=== PATIENT | male | born 1975 | race Caucasian/White ===

== ENCOUNTER 2020-02-07 12:57 | Emergency (ER) | payer MEDICAID ==
[~2020-02-07] VITALS: Ht 167.6 cm; Wt 83.9 kg
[2020-02-07 13:10] VITALS: BP 138/94
--- NOTE | 2020-02-07 13:23 | NUR ---
44 y/o m c/c upper back pain x 3 days. per pt denies trauma, work related injury, and taking otc rx. pt 05/19 pain, non radiating, sharp sensation with movement. per pt when bending and breathing deep triggers the upper back pain. pt nka. no hx. no rx. no n/v/d. sitting in chair; ambulated.
--- NOTE | 2020-02-07 13:35 | NUR ---
jean-claude at chair site
[2020-02-07] MEDS ORDERED: IBUPROFEN 600 MG TAB PO ONE (13:50)
--- NOTE | 2020-02-07 13:55 | NUR ---
Patient returned from XRAY. RN re-evaluating patient.
--- NOTE | 2020-02-07 14:25 | NUR ---
Patient discharged with v/s stable. Written and verbal after care instructions given and explained. Patient alert, oriented and verbalized understanding of instructions. Ambulatory with steady gait. All questions addressed prior to discharge. ID band removed. Patient advised to follow up with PMD. Rx of MOTRIN 600MG, FLEXERIL 10MG AND LIDOCAINE TRANSDERMAL PATCH given. Patient educated on indication of medication including possible reaction and side effects. Opportunity to ask questions provided and answered.
[2020-02-07 14:35] VITALS: BP 129/88
== END 2020-02-07 14:25 | disposition home or self-care (01) ==
LOC: MED 12:57
DX: M54.6 Pain in thoracic spine (principal); F17.210 Nicotine dependence, cigarettes, uncomplicated
CPT/HCPCS: 71045; 99283